=== PATIENT | female | born 1975 | race Caucasian/White ===

== ENCOUNTER 2021-01-10 19:29 | Emergency (ER) | payer OTHER ==
[~2021-01-10 19:29] MED LIST: ANTIVERT25 MG PO; CYCLOBENZAPRINE10 MG PO; DICLOFENAC SODI75 MG PO; ZOFRAN8 MG PO
== END 2021-01-10 22:35 | disposition home or self-care (01) ==
LOC: FER 19:29
DX: S61.211A Laceration without foreign body of left index finger without damage to nail, initial encounter (principal); Z88.5 Allergy status to narcotic agent; Z23 Encounter for immunization; W29.3XXA Contact with powered garden and outdoor hand tools and machinery, initial encounter; Y92.009 Unspecified place in unspecified non-institutional (private) residence as the place of occurrence of the external cause
CPT/HCPCS: 90471; 90715